=== PATIENT | male | born 1985 | race Two or more races ===

== ENCOUNTER 2020-09-30 10:16 | Emergency (ER) | payer BC, MEDICAID ==
[~2020-09-30] VITALS: Ht 172.7 cm; Wt 93.0 kg
[2020-09-30 12:27] VITALS: BP 142/79
== END 2020-09-30 12:30 | disposition home or self-care (01) ==
LOC: ER 10:16
DX: U07.1 COVID-19 (principal); F17.210 Nicotine dependence, cigarettes, uncomplicated; Z90.89 Acquired absence of other organs
CPT/HCPCS: 36415; 71045; 87426

== ENCOUNTER 2020-10-05 08:28 | Inpatient (IN) | payer BC, MEDICAID ==
[2020-10-05] VITALS (8 sets, daily range): BP systolic 107–136; BP diastolic 54–103
[~2020-10-05] VITALS: Ht 172.7 cm; Wt 86.6 kg
[2020-10-05] MEDS ORDERED: ACETAMINOPHEN 500 MG TAB PO ONE ×2 (08:39→08:45)
[2020-10-05] MEDS ORDERED: methylPREDNISolone SOD SUCC 125 MG/2 ML VL IV ONE (08:45)
[2020-10-05] MEDS ORDERED: AZITHROMYCIN 500MG/ 250ML 250 ML IV ONE (08:45)
[2020-10-05] MEDS ORDERED: ASCORBIC ACID 500 MG TAB PO ONE (08:45)
[2020-10-05] MEDS ORDERED: CHOLECALCIFEROL (VITD3) 2,000 UNIT CAP/TAB PO ONE (08:45)
[2020-10-05] MEDS ORDERED: ZINC SULFATE 220mg CAP or TAB PO ONE (08:45)
[2020-10-05 11:09] LABS: Basophils # (auto) 0 10 ^3/uL (0-0.2); Basophils % (auto) 0.4 % (0.0-2.0); Eosinophils # (auto) 0 10 ^3/uL (0-0.8); Hematocrit 47.6 % (41.0-53.0); Hemoglobin 16.5 g/dL (13.5-17.5); Lymphocytes # (auto) 1.7 10 ^3/uL (0.4-5.4); Lymphocytes % (auto) 16.3 % (10.0-50.0); Mean Corpuscular Hemoglobin 31.4 pg (28.0-32.0); Mean Corpuscular Hgb Conc. 34.6 g/dL (32.0-36.0); Mean Corpuscular Volume 90.6 fL (80.0-100.0); Monocytes # (auto) 0.8 10 ^3/uL (0-1.3); Monocytes % (auto) 7.8 % (0.0-12.0); Neutrophils # (auto) 7.9 10 ^3/uL (1.6-8.6); Neutrophils % (auto) 75.5 % (37.0-80.0); Nucleated Red Blood Cells % 0.2 %; Red Blood Cells 5.25 10^6/uL (4.5-5.90); Red Cell Distribution Width 13.4 % (11.8-14.3); White Blood Cell 10.4 10^3/uL (4.4-10.8)
[2020-10-05 11:30] LABS: Potassium 3.6 mmol/L (3.5-5.1)
[2020-10-05 11:44] LABS: Albumin 3.4 g/dL (3.4-5.0); BUN/Creatinine Ratio 11.7; Bilirubin, Total 0.8 mg/dL (0.2-1.0); CRP High Sensitivity 16.3 mg/dL (< 0.3); Total Protein 8.7 g/dL (6.4-8.2)
[2020-10-05] MEDS ORDERED: ONDANSETRON HCL 4 MG/2 ML VIAL IV PRN (12:30)
[2020-10-05] MEDS ORDERED: NITROGLYCERIN 0.4 MG SL TAB SL PRN (12:30)
[2020-10-05] MEDS ORDERED: IVERMECTIN 3 MG TAB PO SCH (12:30)
[2020-10-05] MEDS ORDERED: MORPHINE SULF INJ 2 MG/ML SYRINGE 1ML IV PRN ×2 (12:30)
[2020-10-05] MEDS ORDERED: REMDESIVIR PER PHARMACY 0 ML IV SCH (12:30)
[2020-10-05] MEDS ORDERED: ACETAMINOPHEN 500 MG TAB PO PRN (12:30)
[2020-10-05] MEDS: ENOXAPARIN SOD 40 MG/0.4 ML SYRINGE SC SCH ×2 (13:38→21:41)
[2020-10-05] MEDS ORDERED: REMDESIVIR 200 MG in NS 210ml LOADING DOSE ADULT IV ONE (15:00)
[2020-10-05] MEDS: ALBUTEROL SULF HFA 90MCG INH 200DOSE IN PRN (21:42)
[2020-10-06 05:00] VITALS: BP 112/78
[2020-10-06 09:00] VITALS: BP 135/68
[2020-10-06] MEDS: ASCORBIC ACID 1,000 MG TAB PO SCH (11:33)
[2020-10-06] MEDS: ENOXAPARIN SOD 40 MG/0.4 ML SYRINGE SC SCH ×2 (11:34→22:23)
[2020-10-06] MEDS: CHOLECALCIFEROL (VITD3) 2,000 UNIT CAP/TAB PO SCH (11:34)
[2020-10-06] MEDS: AZITHROMYCIN 500MG/ 250ML 250 ML IV SCH (11:34)
[2020-10-06] MEDS: ZINC SULFATE 220mg CAP or TAB PO SCH (11:34)
[2020-10-06] MEDS: DexAMETHasone SOD PHOS 10MG/1ML VIAL INJ IV SCH (11:35)
[2020-10-06 13:00] VITALS: BP 140/90
[2020-10-06] MEDS: REMDESIVIR 100mg 100 MG in SODIUM CHL 0.9% 230 ML IV SCH (16:37)
[2020-10-06 17:00] VITALS: BP 134/85
[2020-10-06 22:00] VITALS: BP 138/84
[2020-10-06] MEDS: ALBUTEROL SULF HFA 90MCG INH 200DOSE IN PRN (22:53)
[2020-10-07 05:00] VITALS: BP 107/72
[2020-10-07 06:38] LABS: Basophils # (auto) 0 10 ^3/uL (0-0.2); Basophils % (auto) 0.2 % (0.0-2.0); Eosinophils # (auto) 0 10 ^3/uL (0-0.8); Hematocrit 41.8 % (41.0-53.0); Hemoglobin 14.5 g/dL (13.5-17.5); Lymphocytes # (auto) 1.8 10 ^3/uL (0.4-5.4); Lymphocytes % (auto) 19.9 % (10.0-50.0); Mean Corpuscular Hemoglobin 31.3 pg (28.0-32.0); Mean Corpuscular Hgb Conc. 34.6 g/dL (32.0-36.0); Mean Corpuscular Volume 90.2 fL (80.0-100.0); Monocytes # (auto) 0.8 10 ^3/uL (0-1.3); Monocytes % (auto) 9.3 % (0.0-12.0); Neutrophils # (auto) 6.4 10 ^3/uL (1.6-8.6); Neutrophils % (auto) 70.6 % (37.0-80.0); Nucleated Red Blood Cells % 0.1 %; Red Blood Cells 4.64 10^6/uL (4.5-5.90); Red Cell Distribution Width 13.4 % (11.8-14.3); White Blood Cell 9.1 10^3/uL (4.4-10.8)
[2020-10-07 07:05] LABS: Calcium 8.4 mg/dL (8.5-10.1); Potassium 4.2 mmol/L (3.5-5.1)
[2020-10-07 07:15] LABS: BUN/Creatinine Ratio 21.8; CRP High Sensitivity 5.92 mg/dL (< 0.3)
[2020-10-07 09:00] VITALS: BP 144/86
[2020-10-07] MEDS: ZINC SULFATE 220mg CAP or TAB PO SCH (09:43)
[2020-10-07] MEDS: ASCORBIC ACID 1,000 MG TAB PO SCH (09:43)
[2020-10-07] MEDS: DexAMETHasone SOD PHOS 10MG/1ML VIAL INJ IV SCH (09:43)
[2020-10-07] MEDS: ENOXAPARIN SOD 40 MG/0.4 ML SYRINGE SC SCH ×2 (09:43→21:51)
[2020-10-07] MEDS: AZITHROMYCIN 500MG/ 250ML 250 ML IV SCH (09:43)
[2020-10-07] MEDS: CHOLECALCIFEROL (VITD3) 2,000 UNIT CAP/TAB PO SCH (10:47)
[2020-10-07 13:00] VITALS: BP 125/86
[2020-10-07] MEDS: ALBUTEROL SULF HFA 90MCG INH 200DOSE IN PRN ×2 (14:05→19:11)
[2020-10-07] MEDS: REMDESIVIR 100mg 100 MG in SODIUM CHL 0.9% 230 ML IV SCH (15:40)
[2020-10-07 17:00] VITALS: BP 120/75
[2020-10-07 22:00] VITALS: BP 117/90
[2020-10-08 05:00] VITALS: BP 128/49
[2020-10-08] MEDS: ALBUTEROL SULF HFA 90MCG INH 200DOSE IN PRN (06:29)
[2020-10-08 09:00] VITALS: BP 124/76
[2020-10-08] MEDS: DexAMETHasone SOD PHOS 10MG/1ML VIAL INJ IV SCH (09:50)
[2020-10-08] MEDS: ZINC SULFATE 220mg CAP or TAB PO SCH (09:50)
[2020-10-08] MEDS: ENOXAPARIN SOD 40 MG/0.4 ML SYRINGE SC SCH ×2 (09:50→21:45)
[2020-10-08] MEDS: AZITHROMYCIN 500MG/ 250ML 250 ML IV SCH (09:50)
[2020-10-08] MEDS: ASCORBIC ACID 1,000 MG TAB PO SCH (09:50)
[2020-10-08] MEDS: CHOLECALCIFEROL (VITD3) 2,000 UNIT CAP/TAB PO SCH (09:50)
[2020-10-08 13:00] VITALS: BP 147/83
[2020-10-08 13:19] VITALS: BP 124/76
[2020-10-08] MEDS: REMDESIVIR 100mg 100 MG in SODIUM CHL 0.9% 230 ML IV SCH (13:53)
[2020-10-08 17:00] VITALS: BP 148/84
[2020-10-08 22:00] VITALS: BP 117/70
[2020-10-09 05:00] VITALS: BP 102/64
[2020-10-09] MEDS: ALBUTEROL SULF HFA 90MCG INH 200DOSE IN PRN (07:01)
[2020-10-09 07:23] LABS: Albumin 2.8 g/dL (3.4-5.0); BUN/Creatinine Ratio 19.7; Bilirubin, Total 0.4 mg/dL (0.2-1.0); Total Protein 6.6 g/dL (6.4-8.2)
[2020-10-09 09:16] VITALS: BP 110/70
[2020-10-09] MEDS: ZINC SULFATE 220mg CAP or TAB PO SCH (10:00)
[2020-10-09] MEDS: ENOXAPARIN SOD 40 MG/0.4 ML SYRINGE SC SCH ×2 (10:00→22:13)
[2020-10-09] MEDS: AZITHROMYCIN 500MG/ 250ML 250 ML IV SCH (10:00)
[2020-10-09] MEDS: ASCORBIC ACID 1,000 MG TAB PO SCH (10:00)
[2020-10-09] MEDS: CHOLECALCIFEROL (VITD3) 2,000 UNIT CAP/TAB PO SCH (12:45)
[2020-10-09] MEDS: DexAMETHasone SOD PHOS 10MG/1ML VIAL INJ IV SCH (12:45)
[2020-10-09 13:30] VITALS: BP 112/69
[2020-10-09] MEDS: REMDESIVIR 100mg 100 MG in SODIUM CHL 0.9% 230 ML IV SCH (15:53)
[2020-10-09 15:58] VITALS: BP 108/68
[2020-10-09 16:45] VITALS: BP 116/70
[2020-10-09 21:37] VITALS: BP 122/74
[2020-10-10 05:30] VITALS: BP 118/72
[2020-10-10 05:46] LABS: Basophils # (auto) 0.1 10 ^3/uL (0-0.2); Eosinophils # (auto) 0 10 ^3/uL (0-0.8); Hemoglobin 15.6 g/dL (13.5-17.5); Lymphocytes # (auto) 2.2 10 ^3/uL (0.4-5.4); Lymphocytes % (auto) 22.1 % (10.0-50.0); Mean Corpuscular Hemoglobin 32.3 pg (28.0-32.0); Mean Corpuscular Hgb Conc. 35.5 g/dL (32.0-36.0); Monocytes # (auto) 0.5 10 ^3/uL (0-1.3); Monocytes % (auto) 4.7 % (0.0-12.0); Neutrophils # (auto) 7.3 10 ^3/uL (1.6-8.6); Neutrophils % (auto) 72.2 % (37.0-80.0); Nucleated Red Blood Cells % 0.2 %; Red Blood Cells 4.83 10^6/uL (4.5-5.90); Red Cell Distribution Width 13.5 % (11.8-14.3); White Blood Cell 10.2 10^3/uL (4.4-10.8)
[2020-10-10 06:25] LABS: Calcium 8.7 mg/dL (8.5-10.1); Potassium 3.9 mmol/L (3.5-5.1)
[2020-10-10 09:00] VITALS: BP 123/83
[2020-10-10] MEDS: CHOLECALCIFEROL (VITD3) 2,000 UNIT CAP/TAB PO SCH (09:02)
[2020-10-10] MEDS: DexAMETHasone SOD PHOS 10MG/1ML VIAL INJ IV SCH (09:02)
[2020-10-10] MEDS: AZITHROMYCIN 500MG/ 250ML 250 ML IV SCH (09:02)
[2020-10-10] MEDS: ENOXAPARIN SOD 40 MG/0.4 ML SYRINGE SC SCH (09:02)
[2020-10-10] MEDS: ASCORBIC ACID 1,000 MG TAB PO SCH (09:02)
[2020-10-10] MEDS: ZINC SULFATE 220mg CAP or TAB PO SCH (09:02)
[2020-10-10] MEDS ORDERED: CHOL1CAP47 PO (11:50)
[2020-10-10] MEDS ORDERED: ASCO10003 PO (11:50)
[2020-10-10 13:00] VITALS: BP 127/79
== END 2020-10-10 13:10 | disposition home or self-care (01) | DRG 177 ==
LOC: ER 08:28 → TELE 12:28 → TELE-EAST 14:33
PROVIDERS: ADMIT Nurse Practitioner Acute Care; ATTEND Internal Medicine Pulmonary Disease
PROC: XW13325 Transfusion of Convalescent Plasma (Nonautologous) into Peripheral Vein, Percutaneous Approach, New Technology Group 5 (ICD-10-PCS; principal; 2020-10-05)
PROC: XW033E5 Introduction of Remdesivir Anti-infective into Peripheral Vein, Percutaneous Approach, New Technology Group 5 (ICD-10-PCS; 2020-10-05)
DX: U07.1 COVID-19 (principal); J96.01 Acute respiratory failure with hypoxia; J12.82 Pneumonia due to coronavirus disease 2019; R79.82 Elevated C-reactive protein (CRP); D89.839 Cytokine release syndrome, grade unspecified; F17.210 Nicotine dependence, cigarettes, uncomplicated; E66.9 Obesity, unspecified; Z83.3 Family history of diabetes mellitus; Z68.31 Body mass index [BMI] 31.0-31.9, adult
CPT/HCPCS: 36415; 36430; 71045; 71250; 80048; 80053; 82728; 83605; 85025; 85379; 86141; 86850; 86900; 86901; 87040; 87426; 93005; 94640; 96365; 96375; 99291; G0378; J1100